=== PATIENT | female | born 1990 ===

== ENCOUNTER 2021-04-10 18:34 | Day surgery (SDC) | payer OTHER ==
[~2021-04-10 18:34] MED LIST: Doxycycline 100 MG Cap PO ONE; Lactated Ringers 1,000 ML IV SCH; Sodium Chloride 0.9% 10 ML SDV IV PRN; Sodium Chloride 0.9% 10 ML Syringe FLUSH PRN; Sodium Chloride 0.9% 2.5 ML Syringe FLUSH PRN
[2021-04-10] MEDS ORDERED: Ondansetron 4 MG/2 ML SDV IVPUSH PRN (19:37)
[2021-04-10] MEDS ORDERED: Naloxone 0.4 MG/ML Syringe IVPUSH PRN (19:37)
[2021-04-10] MEDS ORDERED: Morphine 10 MG/ML Syringe IVPUSH PRN (19:37)
[2021-04-10] MEDS ORDERED: Albuterol 0.083% 2.5 MG/3 ML Neb Soln NEB PRN (19:37)
[2021-04-10] MEDS ORDERED: Metoclopramide 10 MG/2 ML SDV IVPUSH PRN (19:37)
[2021-04-10] MEDS ORDERED: HYDROmorphone 1 MG/ML Syringe IVPUSH PRN (19:37)
[2021-04-10] MEDS ORDERED: fentaNYL 100 MCG/2 ML SDV IVPUSH PRN (19:37)
--- NOTE | 2021-04-10 19:41 | PCM.PREANE ---
Preanesthetic Assessment - Anesthesia/Transfusion/Family Hx Anesthesia History: Prior Anesthesia Without Reaction Family History of Anesthesia Reaction: No Transfusion History: No Prior Transfusion(s) - Review of Systems General: No Symptoms Pulmonary: No Symptoms Cardiovascular: No Symptoms Gastrointestinal: Abdominal Pain, Decreased Appetite, Nausea, Vomiting Neurological: No Symptoms Other: Reports: None - Physical Assessment NPO Status Date: 04/10/21 NPO Status Time: 12:00 Vital Signs: Last Vital Signs Temp 98.1 F 04/10/21 19:14 Pulse 71 04/10/21 19:14 Resp 16 04/10/21 19:14 BP 99/66 04/10/21 19:14 Pulse Ox 99 04/10/21 19:14 Height: 5 ft 4 in Weight: 66.368 kg ASA Class: 3E Mental Status: Alert & Oriented x3 Airway Class: Mallampati = 1 Dentition: Reports: Normal Dentition Thyro-Mental Finger Breadths: 3 Mouth Opening Finger Breadths: 3 ROM/Head Extension: Full Lungs: Clear to Auscultation, Normal Respiratory Effort Cardiovascular: Regular Rate, Regular Rhythm - Lab Values: Laboratory Last Values WBC 8.02 K/uL (4.0-11.0) 04/10/21 19:19 RBC 3.81 M/uL (4.30-5.90) L 04/10/21 19:19 Hgb 7.9 g/dL (12.0-16.0) L 04/10/21 19:19 Hct 27.6 % (36.0-46.0) L 04/10/21 19:19 MCV 72.4 fL (80.0-98.0) L 04/10/21 19:19 MCH 20.7 pg (27.0-32.0) L 04/10/21 19:19 MCHC 28.6 g/dL (31.0-37.0) L 04/10/21 19:19 RDW Std Deviation 44.1 fl (28.0-62.0) 04/10/21 19:19 RDW Coeff of Germain 17 % (11.0-15.0) H 04/10/21 19:19 Plt Count 408 K/uL (150-400) H 04/10/21 19:19 MPV 9.80 fL (7.40-12.00) 04/10/21 19:19 Nucleated RBC % 0.0 /100WBC 04/10/21 19:19 Nucleated RBCs # 0 K/uL 04/10/21 19:19 - Allergies Allergies/Adverse Reactions: Allergies Allergy/AdvReac Type Severity Reaction Status Date / Time No Known Allergies Allergy Verified 04/10/21 18:59 - Acknowledgements Anesthesia Type Planned: General Anesthesia Pt an Appropriate Candidate for the Planned Anesthesia: Yes Alternatives and Risks of Anesthesia Discussed w Pt/Guardian: Yes Pt/Guardian Understands and Agrees with Anesthesia Plan: Yes PreAnesthesia Questionnaire [employer] History: Reports: Spontaneous Musculoskeletal History: Reports: Fracture Other Musculoskeletal History: fx right arm Hematologic History: Reports: Anemia - Infectious Disease History Infectious Disease History: Reports: Chicken Pox - Past Surgical History Musculoskeletal Surgical History: Reports: Other (See Below) Other Musculoskeletal Surgeries/Procedures:: hand - SUBSTANCE USE Tobacco Use Status *Q: Never Tobacco User Second Hand Smoke Exposure: No Recreational Drug Use History: No - HOME MEDS Home Medications: Home Meds Ibuprofen [Ibu] 1 tab PO TID 04/10/21 [History] Iron,Carbonyl/Ascorbic Acid [Vitron-C Tablet] 1 tab PO DAILY 04/10/21 [History] - CURRENT (IN HOUSE) MEDS Current Meds: Current Medications Albuterol (Albuterol 0.083% 2.5 Mg/3 Ml Neb Soln) 2.5 mg NEB ONETIME PRN PRN Reason: Wheezing Droperidol (Droperidol 5 Mg/2 Ml Sdv) 0.625 mg IVPUSH ONETIME PRN PRN Reason: Nausea/Vomiting Fentanyl (Fentanyl 100 Mcg/2 Ml Sdv) 50 mcg IVPUSH Q5M PRN PRN Reason: Pain (mild 1-3) Hydromorphone HCl (Hydromorphone 1 Mg/Ml Syringe) 1 mg IVPUSH Q10M PRN PRN Reason: Pain (moderate 4-6) Lactated Ringer's (Ringers, Lactated) 1,000 mls @ 500 mls/hr IV BOLUS QUINTON Metoclopramide HCl (Metoclopramide 10 Mg/2 Ml Sdv) 10 mg IVPUSH ONETIME PRN PRN Reason: Nausea/Vomiting Morphine Sulfate (Morphine 10 Mg/Ml Syringe) 2 mg IVPUSH Q10M PRN PRN Reason: Pain (severe 7-10) Naloxone HCl (Naloxone 0.4 Mg/Ml Syringe) 0.1 mg IVPUSH ASDIRECTED PRN PRN Reason: Respiratory Depression Ondansetron HCl (Ondansetron 4 Mg/2 Ml Sdv) 4 mg IVPUSH ONETIME PRN PRN Reason: Nausea/Vomiting Sodium Chloride (Sodium Chloride 0.9% 10 Ml Syringe) 10 ml FLUSH ASDIRECTED PRN PRN Reason: Keep Vein Open Sodium Chloride (Sodium Chloride 0.9% 2.5 Ml Syringe) 2.5 ml FLUSH ASDIRECTED PRN PRN Reason: Keep Vein Open Sodium Chloride (Sodium Chloride 0.9% 10 Ml Sdv) 10 ml IV ASDIRECTED PRN PRN Reason: IV Use Discontinued Medications Doxycycline Hyclate (Doxycycline 100 Mg Cap) 200 mg PO ONETIME ONE Stop: 04/10/21 18:00 Last Admin: 04/10/21 19:19 Dose: 200 mg Documented by:
--- NOTE | 2021-04-10 19:41 | PCM.POSTAN ---
POST ANESTHESIA ASSESSMENT - MENTAL STATUS Mental Status: Alert, Oriented - VITAL SIGNS Vital Signs: Last Vital Signs Temp 36.4 C 04/10/212115 Pulse 95 04/10/212115 Resp 04/10/212115 BP 101/59 04/10/212115 Pulse Ox 96 04/10/212115 - RESPIRATORY Respiratory Status: Respiratory Rate WNL, Airway Patent, O2 Saturation Stable - CARDIOVASCULAR CV Status: Pulse Rate WNL, Blood Pressure Stable - GASTROINTESTINAL GI Status: No Symptoms - POST OP HYDRATION Hydration Status: Adequate & Stable
--- NOTE | 2021-04-10 19:42 | PCM48HPAN ---
Post Anesthesia Note - EVALUATION WITHIN 48HRS OF ANESTHETIC Vital Signs in Normal Range: Yes Patient Participated in Evaluation: Yes Respiratory Function Stable: Yes Airway Patent: Yes Cardiovascular Function Stable: Yes Hydration Status Stable: Yes Pain Control Satisfactory: Yes Nausea and Vomiting Control Satisfactory: Yes Mental Status Recovered: Yes Vital Signs: Last Vital Signs Temp 98.1 F 04/10/21 19:14 Pulse 71 04/10/21 19:14 Resp 16 04/10/21 19:14 BP 99/66 04/10/21 19:14 Pulse Ox 99 04/10/21 19:14
[2021-04-10] MEDS ORDERED: Ondansetron 4 MG/2 ML SDV ONE (20:04)
[2021-04-10] MEDS ORDERED: Lidocaine 2% 5 ML SDV ONE (20:04)
[2021-04-10] MEDS ORDERED: Midazolam 1 MG/ML 2 ML SDV ONE (20:05)
[2021-04-10] MEDS ORDERED: fentaNYL 100 MCG/2 ML SDV ONE (20:05)
[2021-04-10] MEDS ORDERED: Propofol 200 MG/20 ML SDV ONE (20:05)
[2021-04-10] MEDS ORDERED: Acetaminophen/oxyCODONE 325-5 MG Tab PO ONE (21:52)
--- NOTE | 2021-04-11 10:17 | PCM.OPNOTE ---
- General Post-Op/Procedure Note Date of Surgery/Procedure: 04/10/21 Operative Procedure(s): Dilatation and suction curettage Findings: Normal sized anteverted uterus Cervix closed Minimal product of conception retrieved Pre Op Diagnosis: 30yo P1011 with retained product of conception Post-Op Diagnosis: same Anesthesia Technique: General ET Tube Primary Surgeon: Nehemias Vanegas Anesthesia Provider: Melissa Dove Pathology: Product of conception Fluid Replacement, Intraop: 800 EBL in mLs: 20 Complications: None Condition: Good Free Text/Narrative:: Intake & Output 04/10/21 04/11/21 04/11/21 22:59 06:59 14:59 Intake Total 900 Output Total 5 Balance 895
--- NOTE | 2021-04-13 01:43 | OR ---
SURGEON: BORIS RASMUSSEN DATE OF PROCEDURE: 04/10/2021 PREOPERATIVE DIAGNOSIS: A 30-year-old, [id number] retained products of conception. POSTOPERATIVE DIAGNOSIS: A 30-year-old, P1021 with retained products of conception. PROCEDURE: Suction dilatation and curettage. ESTIMATED BLOOD LOSS: 20. IV FLUIDS: 800. ANESTHESIA: General COMPLICATIONS: None. PATHOLOGY: Products of conception. FINDINGS: Normal sized anteverted uterus , minimal products of conceptions BRIEF HISTORY ABOUT THE PATIENT: A 30-year-old, P 1-0-2-1, history of recent AB, which was about 5 to 6 weeks, on February 19. She had medical management. After medical management, she complained of bleeding on and off with some passage of clumps and clots and ultrasound was done, which showed some products in the endometrium with increased blood flow. As a result of this, the patient was consented for suction curettage. The patient was given the risks, benefits, and alternatives. She decided to proceed. DESCRIPTION OF PROCEDURE: The patient was taken to the operating room where general anesthesia was performed without difficulty. She was prepared and draped in the dorsal lithotomy position with Yared stirrups. An examination under anesthesia revealed a normal-sized anteverted uterus with the cervix closed. The patient was prepared and draped in the normal sterile fashion. A speculum was inserted into the vagina. An Allis clamp was placed on the anterior lip of the cervix. The uterus was carefully sounded to about 9 cm. The cervix was dilated with the Hegar dilator to accommodate the 7 mm suction curette, which was advanced to the uterine fundus. The suction was then started. The products of conception were evacuated with the curette rotating on the outward movement. A gentle sharp curettage was then performed with a large curette. Dissection was then reintroduced to clear the uterus. The Allis was removed from the cervix. Good hemostasis was noted. The patient tolerated the procedure well. The instrument and sponge counts were correct x2. The patient was awakened from general anesthesia and taken to the recovery room in stable condition. The patient will go home after recovering from anesthesia and meeting all criteria for discharge. She was given instructions to follow up in 2 weeks. CLEO / JARVIS /[id number] MTDD
== END 2021-04-11 00:45 | disposition home or self-care (01) ==
LOC: MW.MS 18:34 → MW.SDS 18:34
PROVIDERS: ATTEND Obstetrics & Gynecology
DX: O73.1 Retained portions of placenta and membranes, without hemorrhage (principal); D50.9 Iron deficiency anemia, unspecified; Z01.812 Encounter for preprocedural laboratory examination; Z20.822 Contact with and (suspected) exposure to COVID-19
CPT/HCPCS: 36415; 59812; 85027; 86850; 86900; 86901; 86920; 86921; 86922; 87635; 88305; A9270; J0131; J0330; J0690; J2250; J2405; J2704; J3010; 01965; U0002